=== PATIENT | female | born 1990 | race Two or more races ===

== ENCOUNTER 2018-11-17 06:43 | Outpatient (CLI) | payer OTHER ==
[~2018-11-17 06:43] MED LIST: KETO10TA2 PO; ORPH100T PO; SEPTRA 80-400 T1 TAB PO
== END 2018-11-17 06:55 | disposition home or self-care (01) ==
LOC: LAB 06:43
DX: E11.9 Type 2 diabetes mellitus without complications (principal); E03.8 Other specified hypothyroidism; E78.2 Mixed hyperlipidemia; M81.0 Age-related osteoporosis without current pathological fracture; N80.8 Other endometriosis; I10 Essential (primary) hypertension

== ENCOUNTER 2018-11-17 09:30 | Outpatient (CLI) | payer OTHER | END 2018-11-17 17:00 | disposition home or self-care (01) | LOC: TOM 09:30 | DX: R13.19 Other dysphagia (principal) ==

== ENCOUNTER 2018-11-25 08:40 | Outpatient (CLI) | payer OTHER | END 2018-11-25 09:08 | disposition home or self-care (01) | LOC: MAMO-SONO 08:40 | DX: N63.11 Unspecified lump in the right breast, upper outer quadrant (principal); Z12.31 Encounter for screening mammogram for malignant neoplasm of breast ==

== ENCOUNTER 2019-09-24 08:25 | Outpatient (CLI) | payer OTHER | END 2019-09-24 08:30 | disposition home or self-care (01) | LOC: SONOGRAMA 08:25 | DX: R10.84 Generalized abdominal pain (principal) ==

== ENCOUNTER 2021-04-16 07:35 | Outpatient (CLI) | payer OTHER | END 2021-04-16 07:49 | disposition home or self-care (01) | LOC: EDBD 07:35 → MAMO-SONO 07:35 | PROVIDERS: ATTEND Internal Medicine Cardiovascular Disease | DX: R10.84 Generalized abdominal pain (principal) ==

== ENCOUNTER 2021-04-16 09:27 | Outpatient (CLI) | payer OTHER | END 2021-04-16 15:00 | disposition home or self-care (01) | LOC: LAB 09:27 | PROVIDERS: ATTEND Internal Medicine Cardiovascular Disease | DX: I10 Essential (primary) hypertension (principal); E11.9 Type 2 diabetes mellitus without complications; E03.8 Other specified hypothyroidism; E78.2 Mixed hyperlipidemia; E55.9 Vitamin D deficiency, unspecified ==

== ENCOUNTER 2021-05-09 08:50 | Outpatient (CLI) | payer OTHER | END 2021-05-09 08:58 | disposition home or self-care (01) | LOC: NUCLEAR 08:50 | PROVIDERS: ATTEND Internal Medicine Cardiovascular Disease | DX: K80.20 Calculus of gallbladder without cholecystitis without obstruction (principal) | CPT/HCPCS: 78226; A9537; J2805 ==

== ENCOUNTER 2021-08-03 07:28 | Outpatient (CLI) | payer OTHER | END 2021-08-03 07:51 | disposition home or self-care (01) | LOC: LAB 07:28 | PROVIDERS: ATTEND Internal Medicine Gastroenterology | DX: R10.84 Generalized abdominal pain (principal); R19.5 Other fecal abnormalities; Z12.11 Encounter for screening for malignant neoplasm of colon ==

== ENCOUNTER 2022-05-28 18:34 | Emergency (ER) | payer OTHER ==
[~2022-05-28] VITALS: Ht 152.4 cm; Wt 142.0 kg
[2022-05-29] MEDS ORDERED: KETO10TA2 PO (04:22)
[2022-05-29] MEDS ORDERED: NORFLEX100MG PO (04:22)
== END 2022-05-29 04:39 ==
LOC: ER 18:34
DX: M54.9 Dorsalgia, unspecified (principal); M54.50 Low back pain, unspecified

== ENCOUNTER 2023-05-14 17:41 | Emergency (ER) | payer OTHER ==
[~2023-05-14] VITALS: Ht 152.4 cm; Wt 138.3 kg
[~2023-05-14 17:41] MED LIST changes: +NORFLEX100MG PO
[2023-05-14] MEDS ORDERED: PEPCID AC10 MG PO (18:37)
[2023-05-14 20:04] LABS: HEMATOCRIT 40.1 % (36.0-45.00); MEAN CELL VOLUME 84.7 fL (80.00-100.00); MEAN CORPUSCULAR HEMOGLOBIN 27.4 pg (27.00-32.0); MEAN CORPUSCULAR HGB CONC 32.4 g/dl (32.0-36.0); PLATELET COUNT 243 K/uL (150-450); RED BLOOD COUNT 4.74 M/uL (4.00-6.00); RED CELL DISTRIBUTION WIDTH 14.3 % (11.5-14.5)
[2023-05-14 20:29] LABS: ALBUMIN 3.1 gm/dL (3.4-5.0); BILIRUBIN TOTAL 0.35 mg/dL (0.3-1.2); BILIRUBIN,CONJUGATED 0.12 mg/dL (0.0-0.2); BILIRUBIN,UNCONJUGATED 0.23 mg/dL (0.0-0.6); CALCIUM 8.8 mg/dL (8.5-10.1); CREATININE SERUM 0.79 mg/dL (0.55-1.02); GFR 83.31; GLOBULINA 4.7 G/DL (2.4-3.5); POTASSIUM 4.33 mEq/L (3.5-5.1); TOTAL PROTEIN 7.8 gm/dL (6.4-8.2)
[2023-05-14] MEDS ORDERED: PEPCID AC20 MG PO (20:56)
[2023-05-14] MEDS ORDERED: LEVSIN/SL0.125 MG SL (20:56)
[2023-05-14] MEDS ORDERED: ZOFRAN8 MG PO (20:56)
== END 2023-05-14 21:34 | disposition home or self-care (01) ==
LOC: ER 17:41
PROVIDERS: General Practice
DX: R11.2 Nausea with vomiting, unspecified (principal); K29.70 Gastritis, unspecified, without bleeding

== ENCOUNTER 2023-10-16 16:51 | Emergency (ER) | payer OTHER ==
[~2023-10-16] VITALS: Ht 152.4 cm; Wt 140.6 kg
[~2023-10-16 16:51] MED LIST changes: +LEVSIN/SL0.125 MG SL; +PEPCID AC10 MG PO; +PEPCID AC20 MG PO; +ZOFRAN8 MG PO
[2023-10-16] MEDS ORDERED: GUAIFENESIN 200 MG/10 ML BLIST.PACK PO STA (18:19)
[2023-10-16 19:39] LABS: HEMATOCRIT 39.5 % (36.0-45.00); HEMOGLOBIN 13.5 g/dL (12.0-15.00); MEAN CELL VOLUME 84.2 fL (80.00-100.00); MEAN CORPUSCULAR HEMOGLOBIN 28.7 pg (27.00-32.0); PLATELET COUNT 247 K/uL (150-450); RED BLOOD COUNT 4.69 M/uL (4.00-6.00); RED CELL DISTRIBUTION WIDTH 14.3 % (11.5-14.5)
== END 2023-10-16 21:54 | disposition home or self-care (01) ==
LOC: ER 16:52
PROVIDERS: Emergency Medicine
DX: R05.8 Other specified cough (principal); Z20.822 Contact with and (suspected) exposure to COVID-19